=== PATIENT | female | born 1945 | race Caucasian/White ===

== ENCOUNTER 2017-05-15 09:38 | Emergency (ER) | payer MEDICARE, MEDICAID ==
[~2017-05-15] VITALS: Ht 152.4 cm; Wt 32.4 kg
[~2017-05-15 09:38] MED LIST: CALC500T47 PO; ESOM20SU PO; MEMA5TAB2 PO; MIRT15TA6 PO
--- OUTSIDE RECORDS SUMMARY | 2017-05-15 09:44 | XMS REPORT ---
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
--- OUTSIDE RECORDS SUMMARY | 2017-05-15 09:44 | XMS REPORT ---
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
--- OUTSIDE RECORDS SUMMARY | 2017-05-15 09:44 | XMS REPORT ---
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 496484770 Problem GERD (gastroesophageal reflux disease) K21.9 Active 950492375 Problem Screening, lipid Z13.220 Active 935529016 Problem Autism F84.0 Active 829911446 ALLERGIES Substance Reaction Event Type Date Status Aricept 5 Mg Tablet Unknown Non Drug Allergy Jan, Active SOCIAL HISTORY No smoking Hx information available PLAN OF CARE Activity Details Follow Up prn Reason: VITAL SIGNS Height 57 in 2016-02-07 Weight 78.5 lbs 2016-02-07 Temperature 98.4 degrees Fahrenheit 2016-02-07 BMI 16.99 kg/m2 2016-02-07 MEDICATIONS Medication Instructions Dosage Frequency Start Date End Date Duration Status Remeron 15 MG 1 tablet by Oral route 1 time per day 31 Active Mirtazapine Active Lorazepam Active Lorazepam 0.5 MG Orally 2 times a day 0.5 tablet as needed for agitation 12h 31 days Active Nexium 40 MG 1 capsule by Oral route 1 time per day 31 Active Namenda XR 7 MG TAKE ONE CAPSULE ORALLY DAILY 31 Active Terbinafine Active RESULTS Name Result Date Reference Range CULTURE, URINE 2016-02-07 Urine Culture, Routine Final report Result 1 UA W/CULTURE IF INDICATED (IN HOUSE) 2016-02-07 Lot # [id number] Exp date Clarity clear Color yellow Odor none GLU negative TIN negative KET trace SG >=1.030 BLO trace pH 5.5 Protein negative URO 0.2 NIT negative NIKKI trace Lot # Exp date PROCEDURES Procedure Date Ordered Related Diagnosis Body Site [facility] Feb 07, 2016 URINALYSIS, AUTO, W/O SCOPE Feb 07, 2016 Office Visit, Est Pt., Level 3 Feb 07, 2016 [facility] VISIT ESTABLISHED PATIENT Feb 07, 2016 IMMUNIZATIONS No Known Immunizations
--- OUTSIDE RECORDS SUMMARY | 2017-05-15 09:44 | XMS REPORT ---
Author Author DAVID SOSA Organization [facility] Address [address] [place] [address] Care Team Providers Care Catering Operations Manager Name Role Phone DAVID SOSA Unavailable PROBLEMS Type Condition ICD9-CM Code [id number] Code Onset Dates Condition Status SNOMED Code Problem Dyskinesia of esophagus K22.4 Active 19363023 Problem History of GI bleed Z87.19 Active 114977156 Problem Phenylketonuria E70.0 Active 2591368 Problem GERD (gastroesophageal reflux disease) K21.9 Active 745107789 Problem Agitation R45.1 Active 58779699 Problem Aggression F60.89 Active 64892798 Problem Autism F84.0 Active 040441906 Problem 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
--- OUTSIDE RECORDS SUMMARY | 2017-05-15 09:44 | XMS REPORT ---
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 Active Problem Severe mental retardation F72 Active Problem Phenylketonuria E70.0 Active Problem Aggression F60.89 Active Problem Screening, lipid Z13.220 Active Problem Agitation R45.1 Active Problem GERD (gastroesophageal reflux disease) K21.9 Active Problem History of GI bleed Z87.19 Active Problem Autism F84.0 Active Problem 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
--- OUTSIDE RECORDS SUMMARY | 2017-05-15 09:44 | XMS REPORT ---
Author Author DAVID SOSA Organization [employer] Address Unknown Phone Unavailable Care Team Providers Care Crisis Intervention Counselor Name Role Phone DAVID SOSA CP Unavailable [...] Start Date End Date Status Dosage Lorazepam [facility] [address]-21 0.5 MG TAKE 1/2 TABLET ORALLY TWICE A DAY FOR AGGRESSION Results No Known Results Summary Purpose eClinicalWorks Submission
--- OUTSIDE RECORDS SUMMARY | 2017-05-15 09:44 | XMS REPORT ---
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 Active 19625765 Problem History of GI bleed Z87.19 Active 857430388 Problem Phenylketonuria E70.0 Active 0152411 Problem GERD (gastroesophageal reflux disease) K21.9 Active 001222937 Problem Agitation R45.1 Active 75422200 Problem Aggression F60.89 Active 07991097 Problem Autism F84.0 Active 850720189 Problem 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
--- OUTSIDE RECORDS SUMMARY | 2017-05-15 09:44 | XMS REPORT ---
Author Author DAVID SOSA Organization [employer] Address Unknown Phone Unavailable Care Team Providers Care Water Resource Project Manager Name Role Phone DAVID SOSA CP Unavailable [...] Instructions Start Date End Date Status Dosage Calcium Carbonate [facility] [address] 600 mg (1,500 mg) July 21, 2013 1 tablet by Oral route 2 times per day Results No Known Results Summary Purpose eClinicalWorks Submission
--- OUTSIDE RECORDS SUMMARY | 2017-05-15 09:45 | XMS REPORT ---
Author Author DAVID SOSA Organization [facility] Address [address] [place] [address] Care Team Providers Care Supervisor Fleshing Name Role Phone DAVID SOSA Unavailable PROBLEMS Type Condition ICD9-CM Code [id number] Code Onset Dates Condition Status SNOMED Code Problem Dyskinesia of esophagus K22.4 Active 45036942 Problem History of GI bleed Z87.19 Active 105610771 Problem Phenylketonuria E70.0 Active 9189225 Problem GERD (gastroesophageal reflux disease) K21.9 Active 845693343 Problem Agitation R45.1 Active 46099574 Problem Aggression F60.89 Active 87799761 Problem Autism F84.0 Active 857271800 Problem 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 Active 569214284 Problem Screening, lipid Z13.220 Active 269900419 Problem Severe mental retardation F72 Active 43715529 ALLERGIES No Information SOCIAL HISTORY Never Assessed PLAN OF CARE VITAL SIGNS MEDICATIONS Medication Instructions Dosage Frequency Start Date End Date Duration Status Nexium 40 MG 1 capsule by Oral route 1 time per day 31 Active Terbinafine Active Remeron 15 MG 1 tablet by Oral route 1 time per day 31 Active Mirtazapine Active Namenda XR 7 MG TAKE ONE CAPSULE ORALLY DAILY 31 Active Ativan 0.5 MG Orally 2 times a day 0.5 tablet 12h May, 31 days Active Caltrate 600 1500 (600 Ca) MG Orally 2 times a day 1 tablet 12h Active RESULTS No Results PROCEDURES No Known procedures IMMUNIZATIONS No Known Immunizations MEDICAL (GENERAL) HISTORY Type Description Date Medical History alzheimer's disease
--- OUTSIDE RECORDS SUMMARY | 2017-05-15 09:45 | XMS REPORT ---
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
--- OUTSIDE RECORDS SUMMARY | 2017-05-15 09:45 | XMS REPORT ---
Author Author DAVID SOSA Organization [employer] Address Unknown Phone Unavailable Care Team Providers Care Soil Tester Name Role Phone DAVID SOSA CP Unavailable [...] Start Date End Date Status Dosage Ativan [facility] [address]-94 0.5 MG May 12, 2014 0.5 tablet by Oral route 2 times per day for agitation Results No Known Results Summary Purpose eClinicalWorks Submission
--- OUTSIDE RECORDS SUMMARY | 2017-05-15 09:45 | XMS REPORT ---
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 Active 55171678 Problem History of GI bleed Z87.19 Active 784344789 Problem Phenylketonuria E70.0 Active 5161659 Problem GERD (gastroesophageal reflux disease) K21.9 Active 081076357 Problem Agitation R45.1 Active 37071418 Problem Aggression F60.89 Active 89912123 Problem Autism F84.0 Active 807705586 Problem 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
--- OUTSIDE RECORDS SUMMARY | 2017-05-15 09:46 | XMS REPORT | Continuity of Care Document ---
Author Author [facility] Organization [facility] Address Unknown Phone Unavailable Allergies Active Description Code Type Severity Reaction Onset Reported/Identified Relationship to Patient Clinical Status Yes Aspartame (Nutrasweet) Food Allergy 12/07/2008 Yes Aspartame (Nutrasweet) Food Allergy N/A N/A 12/07/2008 Yes Aricept 5 mg tablet Drug Allergy N/A N/A 07/16/2012 Yes aspartame [id number] Drug Allergy Unknown N/A 03/08/2013 Medications There is no data. Problems Date Dx Coded Attending Type Code Diagnosis Diagnosed By 12/09/2007 533.90 PEPTIC ULCER OF UNSPECIFIED SITE UNSPECIFIED ACUTE OR CHRONIC WITHOUT HEMORRHAGE OR PERFORATION WITHOUT OBSTRUCTION 12/09/2007 533.90 PEPTIC ULCER OF UNSPECIFIED SITE UNSPECIFIED ACUTE OR CHRONIC WITHOUT HEMORRHAGE OR PERFORATION WITHOUT OBSTRUCTION 12/09/2007 533.90 PEPTIC ULCER OF UNSPECIFIED SITE UNSPECIFIED ACUTE OR CHRONIC WITHOUT HEMORRHAGE OR PERFORATION WITHOUT OBSTRUCTION 12/09/2007 DAVID SOSA APRN 533.90 PEPTIC ULCER OF UNSPECIFIED SITE UNSPECIFIED ACUTE OR CHRONIC WITHOUT HEMORRHAGE OR PERFORATION WITHOUT OBSTRUCTION 12/09/2007 DAVID SOSA APRN 533.90 PEPTIC ULCER OF UNSPECIFIED SITE UNSPECIFIED ACUTE OR CHRONIC WITHOUT HEMORRHAGE OR PERFORATION WITHOUT OBSTRUCTION 12/09/2007 DAVID SOSA APRN 533.90 PEPTIC ULCER OF UNSPECIFIED SITE UNSPECIFIED ACUTE OR CHRONIC WITHOUT HEMORRHAGE OR PERFORATION WITHOUT OBSTRUCTION 12/09/2007 HILLARY DAN DDS 533.90 PEPTIC ULCER OF UNSPECIFIED SITE UNSPECIFIED ACUTE OR CHRONIC WITHOUT HEMORRHAGE OR PERFORATION WITHOUT OBSTRUCTION 12/09/2007 DAVID SOSA APRN 533.90 PEPTIC ULCER OF UNSPECIFIED SITE UNSPECIFIED ACUTE OR CHRONIC WITHOUT HEMORRHAGE OR PERFORATION WITHOUT OBSTRUCTION 12/09/2007 RANDALL JACOBO APRN 533.90 PEPTIC ULCER OF UNSPECIFIED SITE UNSPECIFIED ACUTE OR CHRONIC WITHOUT HEMORRHAGE OR PERFORATION WITHOUT OBSTRUCTION 12/09/2007 MARIALUISA DOSS, KELY 533.90 PEPTIC ULCER OF UNSPECIFIED SITE UNSPECIFIED ACUTE OR CHRONIC WITHOUT HEMORRHAGE OR PERFORATION WITHOUT OBSTRUCTION 12/09/2007 EVA SOSA APRNNDA S 533.90 PEPTIC ULCER OF UNSPECIFIED SITE UNSPECIFIED ACUTE OR CHRONIC WITHOUT HEMORRHAGE OR PERFORATION WITHOUT OBSTRUCTION 12/13/2009 307.42 PERSISTENT DISORDER OF INITIATING OR MAINTAINING SLEEP 12/13/2009 318.2 PROFOUND MENTAL RETARDATION 12/13/2009 525.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 12/13/2009 530.81 ESOPHAGEAL REFLUX 12/13/2009 788.30 URINARY INCONTINENCE UNSPECIFIED 12/13/2009 307.42 PERSISTENT DISORDER OF INITIATING OR MAINTAINING SLEEP 12/13/2009 318.2 PROFOUND MENTAL RETARDATION 12/13/2009 525.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 12/13/2009 530.81 ESOPHAGEAL REFLUX 12/13/2009 788.30 URINARY INCONTINENCE UNSPECIFIED 12/13/2009 307.42 PERSISTENT DISORDER OF INITIATING OR MAINTAINING SLEEP 12/13/2009 318.2 PROFOUND MENTAL RETARDATION 12/13/2009 525.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 12/13/2009 530.81 ESOPHAGEAL REFLUX 12/13/2009 788.30 URINARY INCONTINENCE UNSPECIFIED 12/13/2009 SHEILA SHEET HEATEREVA JaraNDA S 307.42 PERSISTENT DISORDER OF INITIATING OR MAINTAINING SLEEP 12/13/2009 EVA SOSA APRNNDA S 318.2 PROFOUND MENTAL RETARDATION 12/13/2009 SHEILA PICKETT DAVID S 525.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 12/13/2009 SHEILA PICKETT DAVID S 530.81 ESOPHAGEAL REFLUX 12/13/2009 SHEILA PICKETT DAVID S 788.30 URINARY INCONTINENCE UNSPECIFIED 12/13/2009 SHEILA SHEET HEATER, DAVID S 307.42 PERSISTENT DISORDER OF INITIATING OR MAINTAINING SLEEP 12/13/2009 SHEILA PICKETT, DAVID S 318.2 PROFOUND MENTAL RETARDATION 12/13/2009 SHEILA PICKETT DAVID S 525.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 12/13/2009 SHEILA PICKETT, DAVID S 530.81 ESOPHAGEAL REFLUX 12/13/2009 SHEILA PICKETT DAVID S 788.30 URINARY INCONTINENCE UNSPECIFIED 12/13/2009 SHEILA SHEET HEATER, DAVID S 307.42 PERSISTENT DISORDER OF INITIATING OR MAINTAINING SLEEP 12/13/2009 SHEILA PICKETT, DAVID S 318.2 PROFOUND MENTAL RETARDATION 12/13/2009 SHEILA PICKETT, DAVID S 525.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 12/13/2009 SHEILA PICKETT, DAVID S 530.81 ESOPHAGEAL REFLUX 12/13/2009 SHEILA PICKETT, DAVID S 788.30 URINARY INCONTINENCE UNSPECIFIED 12/13/2009 WHITE DDS, HILLARY D 307.42 PERSISTENT DISORDER OF INITIATING OR MAINTAINING SLEEP 12/13/2009 WHITE DDS, HILLARY D 318.2 PROFOUND MENTAL RETARDATION 12/13/2009 WHITE DDS, HILLARY D 525.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 12/13/2009 WHITE DDS, HILLARY D 530.81 ESOPHAGEAL REFLUX 12/13/2009 WHITE DDS, HILLARY D 788.30 URINARY INCONTINENCE UNSPECIFIED 12/13/2009 EVA SOSA APRNNDA S 307.42 PERSISTENT DISORDER OF INITIATING OR MAINTAINING SLEEP 12/13/2009 SHEILA PICKETT, DAVID S 318.2 PROFOUND MENTAL RETARDATION 12/13/2009 SHEILA PICKETT, DAVID S 525.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 12/13/2009 SHEILA PICKETT DAVID S 530.81 ESOPHAGEAL REFLUX 12/13/2009 SHEILA PICKETT, DAVID S 788.30 URINARY INCONTINENCE UNSPECIFIED 12/13/2009 RANDALL JACOBO APRN T 307.42 PERSISTENT DISORDER OF INITIATING OR MAINTAINING SLEEP 12/13/2009 ODALIS PICKETT RANDALL T 318.2 PROFOUND MENTAL RETARDATION 12/13/2009 ODALIS PICKETT RANDALL T 525.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 12/13/2009 ODALIS PICKETT RANDALL T 530.81 ESOPHAGEAL REFLUX 12/13/2009 ODALIS PICKETT RANDALL T 788.30 URINARY INCONTINENCE UNSPECIFIED 12/13/2009 KELY ELAM MD 307.42 PERSISTENT DISORDER OF INITIATING OR MAINTAINING SLEEP 12/13/2009 KELY ELAM MD 318.2 PROFOUND MENTAL RETARDATION 12/13/2009 KELY ELAM MD 525.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 12/13/2009 KELY ELAM MD 530.81 ESOPHAGEAL REFLUX 12/13/2009 KELY ELAM MD 788.30 URINARY INCONTINENCE UNSPECIFIED 12/13/2009 DAVID SOSA APRN S 307.42 PERSISTENT DISORDER OF INITIATING OR MAINTAINING SLEEP 12/13/2009 DAVID SOSA APRN 318.2 PROFOUND MENTAL RETARDATION 12/13/2009 DAVID SOSA APRN S 525.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 12/13/2009 DAVID SOSA APRN S 530.81 ESOPHAGEAL REFLUX 12/13/2009 DAVID SOSA APRN 788.30 URINARY INCONTINENCE UNSPECIFIED 01/29/2011 300.00 ANXIETY STATE UNSPECIFIED 01/29/2011 V70.0 EXAM - ROUTINE H&P 01/29/2011 300.00 ANXIETY STATE UNSPECIFIED 01/29/2011 V70.0 EXAM - ROUTINE H&P 01/29/2011 300.00 ANXIETY STATE UNSPECIFIED 01/29/2011 V70.0 EXAM - ROUTINE H&P 01/29/2011 JUAN R SOSA APRNA S 300.00 ANXIETY STATE UNSPECIFIED 01/29/2011 JUAN R SOSA APRNA S V70.0 EXAM - ROUTINE H&P 01/29/2011 EVA SOSA APRNNDA S 300.00 ANXIETY STATE UNSPECIFIED 01/29/2011 EVA SOSA APRNNDA S V70.0 EXAM - ROUTINE H&P 01/29/2011 EVA SOSA APRNNDA S 300.00 ANXIETY STATE UNSPECIFIED 01/29/2011 JUAN R SOSA APRNA S V70.0 EXAM - ROUTINE H&P 01/29/2011 WHITE DDS, HILLARY D 300.00 ANXIETY STATE UNSPECIFIED 01/29/2011 WHITE DDS, HILLARY D V70.0 EXAM - ROUTINE H&P 01/29/2011 JUAN R SOSA APRNA S 300.00 ANXIETY STATE UNSPECIFIED 01/29/2011 EVA SOSA APRNNDA S V70.0 EXAM - ROUTINE H&P 01/29/2011 RANDALL JACOBO APRN T 300.00 ANXIETY STATE UNSPECIFIED 01/29/2011 ODALIS PICKETT RANDALL T V70.0 EXAM - ROUTINE H&P 01/29/2011 KELY ELAM MD 300.00 ANXIETY STATE UNSPECIFIED 01/29/2011 KELY ELAM MD V70.0 EXAM - ROUTINE H&P 01/29/2011 DAVID SOSA APRN S 300.00 ANXIETY STATE UNSPECIFIED 01/29/2011 EVA SOSA APRNNDA S V70.0 EXAM - ROUTINE H&P 03/21/2011 V72.31 Pelvic Exam ( Internal) 03/21/2011 V72.31 Pelvic Exam ( Internal) 03/21/2011 V72.31 Pelvic Exam ( Internal) 03/21/2011 EVA SOSA APRNNDA S V72.31 Pelvic Exam (Internal) 03/21/2011 EVA SOSA APRNNDA S V72.31 Pelvic Exam (Internal) 03/21/2011 EVA SOSA APRNNDA S V72.31 Pelvic Exam (Internal) 03/21/2011 HILLARY DAN DDS V72.31 Pelvic Exam (Internal) 03/21/2011 JUAN R SOSA APRNA S V72.31 Pelvic Exam (Internal) 03/21/2011 RANDALL JACOBO APRN V72.31 Pelvic Exam (Internal) 03/21/2011 KELY ELAM MD V72.31 Pelvic Exam (Internal) 03/21/2011 JUAN R SOSA APRNA S V72.31 PELVIC EXAM (INTERNAL) 05/15/2012 294.20 DEMENTIA UNSPECIFIED WITHOUT BEHAVIORAL DISTURBANCE 05/15/2012 294.20 DEMENTIA UNSPECIFIED WITHOUT BEHAVIORAL DISTURBANCE 05/15/2012 EVA SOSA APRNNDA S 294.20 DEMENTIA UNSPECIFIED WITHOUT BEHAVIORAL DISTURBANCE 05/15/2012 EVA SOSA APRNNDA S 294.20 DEMENTIA UNSPECIFIED WITHOUT BEHAVIORAL DISTURBANCE 05/15/2012 EVA SOSA APRNNDA S 294.20 DEMENTIA UNSPECIFIED WITHOUT BEHAVIORAL DISTURBANCE 05/15/2012 HILLARY DAN DDS 294.20 DEMENTIA UNSPECIFIED WITHOUT BEHAVIORAL DISTURBANCE 05/15/2012 EVA SOSA APRNNDA S 294.20 DEMENTIA UNSPECIFIED WITHOUT BEHAVIORAL DISTURBANCE 05/15/2012 RANDALL JACOBO APRN 294.20 DEMENTIA UNSPECIFIED WITHOUT BEHAVIORAL DISTURBANCE 05/15/2012 KELY ELAM MD 294.20 DEMENTIA UNSPECIFIED WITHOUT BEHAVIORAL DISTURBANCE 05/15/2012 EVA SOSA APRNNDA S 294.20 DEMENTIA UNSPECIFIED WITHOUT BEHAVIORAL DISTURBANCE 02/05/2013 SHEILA SHEET HEATER, DAVID S 530.5 DYSPHAGIA 02/05/2013 SHEILA SHEET HEATER, DAVID S V82.9 SCREENING FOR UNSPECIFIED CONDITION 02/05/2013 SHEILA SHEET HEATER, DAVID S 530.5 DYSPHAGIA 02/05/2013 SHEILA SHEET HEATER, DAVID S V82.9 SCREENING FOR UNSPECIFIED CONDITION 02/05/2013 WHITE DDS, HILLARY D 530.5 DYSPHAGIA 02/05/2013 WHITE DDS, HILLARY D V82.9 SCREENING FOR UNSPECIFIED CONDITION 02/05/2013 SHEILA PICKETT, DAVID S 530.5 DYSPHAGIA 02/05/2013 SHEILA HASSANN, DAVID S V82.9 SCREENING FOR UNSPECIFIED CONDITION 02/05/2013 RANDALL JACOBO APRN 530.5 DYSPHAGIA 02/05/2013 RANDALL JACOBO APRN V82.9 SCREENING FOR UNSPECIFIED CONDITION 02/05/2013 KEYL ELAM MD 530.5 DYSPHAGIA 02/05/2013 KELY ELAM MD V82.9 SCREENING FOR UNSPECIFIED CONDITION 02/05/2013 SHEILA PICKETT, DAVID S 530.5 DYSPHAGIA 02/05/2013 SHEILA PICKETT, DAVID S V82.9 SCREENING FOR UNSPECIFIED CONDITION 02/20/2013 DAVID SOSA Ot 787.20 DYSPHAGIA, UNSPECIFIED 02/20/2013 DAVID SOSA Ot V57.3 CARE INVOLVING SPEECH-LANGUAGE THERAPY 03/08/2013 TRACEE COOK MD Ot 692.9 DERMATITIS NOS 03/08/2013 TRACEE COOK MD Ot 782.1 NONSPECIF SKIN ERUPT NEC 04/24/2013 RANDALL JACOBO APRN 110.1 ONYCHOMYCOSIS 04/24/2013 KELY ELAM MD 110.1 ONYCHOMYCOSIS 04/24/2013 DAVID SOSA APRN 110.1 ONYCHOMYCOSIS 09/29/2013 KELY ELAM MD V76.12 MAMMOGRAM SCREENING 09/29/2013 DAVID SOSA APRN V76.12 MAMMOGRAM SCREENING 08/31/2015 Ot V76.19 OTH SCREEN BREAST EXAM FOR MALIGNANT ANY 08/31/2015 DAVID SOSA Ot 733.00 OSTEOPOROSIS NOS 08/31/2015 EVA SOSANDA VIVIEN Ot V82.81 SCREENING FOR OSTEOPOROSIS 08/31/2015 SHEILA DAVID PUGA Ot Z12.31 ENCNTR SCREEN MAMMOGRAM FOR MALIGNANT NE 08/31/2015 EVA SOSALUIS PUGA Ot Z12.31 ENCNTR SCREEN MAMMOGRAM FOR MALIGNANT NE 09/01/2015 SHEILA DAVID PUGA Ot Z12.31 ENCNTR SCREEN MAMMOGRAM FOR MALIGNANT NE 09/02/2015 SHEILA, DAVID PUGA Ot Z12.31 ENCNTR SCREEN MAMMOGRAM FOR MALIGNANT NE 10/06/2015 SHEILAEVA GAMINOLUIS PUGA Ot Z12.31 ENCNTR SCREEN MAMMOGRAM FOR MALIGNANT NE 11/08/2015 EVA SOSALUIS PUGA Ot Z12.31 ENCNTR SCREEN MAMMOGRAM FOR MALIGNANT NE Procedures Code [place] [address] CBC 02/06/2013 2322723 GFR CALC (RESULT ONLY) 02/06/2013 78249 CMP 02/06/2013 75322 LIPID PANEL 02/06/2013 17060 TSH 02/06/2013 54438 US HEEL, BONE MINERAL DENSITY (IN HOUSE) 02/10/2013 14910 DEXA BONE DENSITY, AXIAL 02/13/2013 Physical Speech Therapy 02/24/2013 71907 US BREAST(S) ULTRASOUND, BOTH 10/01/2013 Results Test Result Range Urine Culture, Routine - 02/07/16 15:23 Urine Culture, Routine Note Encounters ACCT No. Visit Date/Time Discharge Status Pt. Type Provider Facility Loc./Unit Complaint [id number] 08/31/2015 10:28:00 08/31/2015 23:59:59 CLS Outpatient DAVID SOSA [facility] RAD SCREENING [id number] 03/08/2013 08:44:00 03/08/2013 10:20:00 DIS Emergency TRACEE COOK MD [facility] ER [id number] 02/27/2013 10:31:00 02/27/2013 23:59:59 CLS Outpatient DAVID SOSA [facility] RAD [id number] 02/20/2013 13:04:00 02/20/2013 14:00:00 [id number] 08/31/2015 10:28:00 Document Registration [id number] 03/28/2011 13:02:00 Document Registration [id number] 04/19/2014 09:52:00 04/19/2014 23:59:59 CLS Outpatient DAVID SOSA APRN [id number] 09/30/2013 14:41:00 09/30/2013 23:59:59 CLS Outpatient KELY ELAM MD [id number] 04/24/2013 11:49:00 04/24/2013 23:59:59 CLS Outpatient RANDALL JACOBO APRN [id number] 02/13/2013 08:06:00 02/13/2013 23:59:59 CLS Outpatient HILLARY DAN DDS [id number] 02/10/2013 09:21:00 02/10/2013 23:59:59 CLS Outpatient DAVID SOSA APRN [id number] 02/05/2013 11:05:00 02/05/2013 23:59:59 CLS Outpatient DAVID SOSA APRN [id number] 02/05/2013 11:05:00 02/05/2013 23:59:59 CLS Outpatient DAVID SOSA APRN [id number] 08/19/2012 13:47:00 08/19/2012 23:59:59 CLS Outpatient DAVID SOSA APRN [id number] 05/15/2012 11:47:00 05/15/2012 23:59:59 CLS Outpatient [id number] 12/19/2011 14:24:00 12/19/2011 23:59:59 CLS Outpatient [id number] 07/16/2012 15:01:00 Document Registration [id number] 02/09/2016 05:05:00 Document Registration
--- OUTSIDE RECORDS SUMMARY | 2017-05-15 09:46 | XMS REPORT ---
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 Active 93823326 Problem History of GI bleed Z87.19 Active 058924664 Problem Phenylketonuria E70.0 Active 3863986 Problem GERD (gastroesophageal reflux disease) K21.9 Active 340911516 Problem Agitation R45.1 Active 28664636 Problem Aggression F60.89 Active 69698822 Problem Autism F84.0 Active 145122279 Problem 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 Active 319906118 Problem Screening, lipid Z13.220 Active 990602922 Problem Severe mental retardation F72 Active 69528565 ALLERGIES Substance Reaction Event Type Date Status Aricept 5 Mg Tablet Unknown Non Drug Allergy Apr, Active SOCIAL HISTORY Never Assessed PLAN OF CARE Activity Details Follow Up 6 Months Reason: VITAL SIGNS Height 57 in 2016-05-17 Weight 75.3 lbs 2016-05-17 Heart Rate 98 bpm 2016-05-17 Respiratory Rate 20 2016-05-17 BMI 16.29 kg/m2 2016-05-17 Blood pressure systolic 186 mmHg 2016-05-17 Blood pressure diastolic 92 mmHg 2016-05-17 MEDICATIONS Medication Instructions Dosage Frequency Start Date End Date Duration Status Caltrate 600 1500 (600 Ca) MG Orally 2 times a day 1 tablet 12h Active Ativan 0.5 MG Orally 2 times a day 0.5 tablet 12h May, 31 days Active Namenda XR 7 MG TAKE ONE CAPSULE ORALLY DAILY 31 Active Remeron 15 MG 1 tablet by Oral route 1 time per day 31 Active Terbinafine Active Ammonium Lactate 12 % Externally Once a day 1 application to affected area 24h Active Nexium 40 MG 1 capsule by Oral route 1 time per day 31 Active RESULTS No Results PROCEDURES Procedure Date Ordered Result Body Site [facility] VISIT IPPE/AWV May 17, 2016 ANNUAL WELLNESS VST; PPS SUBSQT VST May 17, 2016 IMMUNIZATIONS No Known Immunizations MEDICAL (GENERAL) HISTORY Type Description Date Medical History alzheimer's disease
--- OUTSIDE RECORDS SUMMARY | 2017-05-15 09:46 | XMS REPORT ---
Author Author DAVID SOSA Organization [facility] Address [address] [place] [address] Care Team Providers Care Automobile Spring Repairer Name Role Phone DAVID SOSA Unavailable PROBLEMS Type Condition ICD9-CM Code MDN75-EI Code Onset Dates Condition Status SNOMED Code Problem Dyskinesia of esophagus K22.4 Active 09327291 Problem History of GI bleed Z87.19 Active 090651745 Problem Phenylketonuria E70.0 Active 2174788 Problem GERD (gastroesophageal reflux disease) K21.9 Active 619813757 Problem Agitation R45.1 Active 81116775 Problem Aggression F60.89 Active 73208750 Problem Autism F84.0 Active 542420901 Problem 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 Active 319877203 Problem Screening, lipid Z13.220 Active 394593426 Problem Severe mental retardation F72 Active 73043871 ALLERGIES No Information ENCOUNTERS Encounter Location Date Diagnosis [place] [address] [address] Apr, Agitation R45.1 [place] [address] [address] Apr, Candidiasis, intertriginous B37.2 [place] [address] [address]- [address] Mar, Phenylketonuria E70.0 and Weight loss R63.4 [place] [address] [address]- [address] Mar, [place] [address] [address] Mar, Rash R21 [place] [address] [address]- [address] 09 Mar, 2017 Rash R21 [facility] [id number] [place] [address]- 6746 Feb, Encounter for screening for other metabolic disorders Z13.228 [facility] [address] [place] [address] 96341- 5469 Feb, Autism F84.0 and Agitation R45.1 [facility] [address] [place] [id number] [place] [address] 73562- 3425 Oct, [facility] [id number] [place] [address] 83313- 1615 Oct, Weight loss R63.4 ; Severe mental retardation F72 and Autism F84.0 [facility] [id number] [place] [id number] Sep, [facility] [address] [place] [id number] [place] [address] 93341- 1041 Sep, Agitation R45.1 [facility] [address] [place] [address] 77911- 9162 Sep, Agitation R45.[address] [id number] [id number] Jul, Dental examination Z01.20 [facility] [address] [address] Jul, [facility] [address] [place] [address] 39910- 1272 June, [facility] [address] [place] [address] 41561- 1146 Apr, History of GI bleed Z87.19 and Screening, lipid Z13.220 [facility] [address] [place] [address] 62266- 8040 Apr, Severe mental retardation F72 ; Screening, lipid Z13.220 and History of GI bleed Z87.19 [facility] [address] [address] 28 Mar, 2016 Agitation R45.1 [facility] [address] [place] [id number] [place] [address] 66329- 2883 27 Mar, 2016 [facility] [address] [place] [id number] [place] [address]229- 9996 Jan, Malaise R53.81 [facility] [address] [place] [id number] [place] [address] 15293- 1301 Nov, [facility] [address] [place] [id number] [place] [address] 28979- 1747 Jul, Breast cancer screening Z12.39 [place] [address] [place] [id number] [place] [address] 54845- 6749 Jul, [facility] [address] [place] [id number] [place] [address] [id number] May, Encounter for dental examination and cleaning with abnormal findings Z01.21 [facility] [address] [place] [id number] [place] [address] 86575- 8078 May, Agitation R45.1 [place] [id number] [place] [address] 17138- 2749 May, Agitation R45.1 [place] [address] [place] [id number] [place] [address] 86340- 0056 May, Autism F84.0 ; History of GI bleed Z87.19 and Screening, lipid Z13.220 [facility] [address] [place] [address] 75264- 7952 Apr, Autism F84.0 ; 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 [id number] [place] [address]- 8042 Dec, [facility] [place] [facility] [address] [id number] [place] [address]- 5519 Dec, [facility] [place] [facility] [address] [id number] [place] [address]- 9332 29 Oct, 2014 [facility] [place] [facility] [id number] [place] [address], [place] [address]- 2445 23 Oct, 2014 [facility] [place] [facility] [address] [id number] [place] [address]- 6395 16 Oct, 2014 [facility] [place] [facility] [address] [id number] [place] [address]- 5522 Aug, [facility] [place] [facility] [address] [id number] [place] [address]- 0765 Jul, Anorexia 783.0 [facility] [place] [facility] [address] [id number] [place] [address]- 8471 June, [facility] [place] [facility] [address] [id number] [place] [address]- 7664 14 May, 2014 [facility] [place] [facility] [address] [id number] [place] [address]- 7870 13 May, 2014 [facility] [place] [facility] [address] [id number] [place] [address]- 6248 18 Apr, 2014 [facility] [place] [facility] [address] [id number] [place] [address]- 5445 18 Apr, 2014 [facility] [place] [facility] [address] [facility] [id number] [place] [address]- 5158 17 Apr, 2014 [facility] [place] [facility] [address] [id number] [place] [address]- 9759 Apr, 2014 [facility] [place] [facility] [address] [id number] [place] [address]- 6842 Apr, 2014 [facility] [place] [facility] [address] [id number] [place] [address]- 2770 Apr, 2014 [facility] [place] [facility] [address] [id number] [place] [address]- 9523 Mar, 2014 [facility] [place] [facility] [address] [id number] [place] [address]- 2824 Mar, 2014 [facility] [place] [facility] [address] [id number] [place] [address]- 0991 Mar, 2014 [facility] [place] [facility] [address] [id number] [place] [address]- 7512 Mar, 2014 [facility] [place] [facility] [address] [id number] [place] [address]- 2136 Mar, 2014 [facility] [place] [facility] [address] [id number] [place] [address]- 7499 Mar, 2014 [facility] [place] [facility] [address] [id number] [place] [address]- 5560 Sep, [facility] [place] [facility] [address] [id number] [place] [address]- 6273 Sep, [facility] [place] [facility] [address] [id number] [place] [address]- 1569 Sep, [facility] [place] [facility] [address] [id number] [place] [address]- 8645 Sep, [facility] [place] [facility] [address] [id number] [place] [address]- 1244 Aug, [facility] [place] [facility] [address] [id number] [place] [address]- 7512 Aug, [facility] [place] [facility] [address] [id number] [place] [address]- 2546 June, [facility] [place] [facility] [address] [id number] [place] [address]- 7661 June, [facility] [place] [facility] [address] [id number] [place] [address]- 6116 Apr, [facility] [place] [facility] [address] [id number] [place] [address]- 3929 Apr, [facility] [place] [facility] [address] [id number] [place] [address]- 6974 Mar, [facility] [place] [facility] [address] [id number] [place] [address]- 8581 Mar, [facility] [place] [facility] [address] [id number] [place] [address]- 2645 Mar, [facility] [place] [facility] [address] [id number] [place] [address]- 9999 Mar, [facility] [place] [facility] [address] [id number] [place] [address]- 6089 Feb, [facility] [place] [facility] [address] [id number] [place] [address]- 5974 Feb, [facility] [place] [facility] [address] [facility] [id number] [place] [address]- 8233 Feb, [facility] [place] [facility] [address] [id number] [place] [address]- 4027 Feb, [facility] [place] [facility] [address] [id number] [place] [address]- 1602 Feb, [facility] [place] [facility] [address] [id number] [place] [address]- 8195 Feb, [facility] [place] [facility] [address] [id number] [place] [address]- 2076 Jan, [facility] [place] [facility] [address] [id number] [place] [address]- 2456 Jan, [facility] [place] [facility] [address] [id number] [place] [address]- 4347 17 Jan, 2013 [facility] [place] [facility] [address] [id number] [place] [address]- 6265 17 Jan, 2013 [facility] [place] [facility] [address] [id number] [place] [address]- 0060 16 Jan, 2013 [facility] [place] [facility] [address] [id number] [place] [address]- 3656 16 Jan, 2013 [facility] [place] [facility] [address] [id number] [place] [address]- 8711 13 Jan, 2013 [facility] [place] [facility] [address] [id number] [place] [address]- 1265 Jan, [facility] [place] [facility] [address] [id number] [place] 3129 Jan, [facility] [place] [facility] [address] [id number] [place] [address]- 4666 Dec, [facility] [place] [facility] [address] [id number] [place] 2259 Dec, [facility] [place] [facility] [address] [id number] [place] [address]- 8551 Nov, [facility] [place] [facility] [address] [id number] [place] [address]- 4291 Nov, [facility] [place] [facility] [address] [id number] [place] [address]- 1365 Jul, [facility] [place] [facility] [address] [id number] [place] [address]- 2799 Jul, [facility] [place] [facility] [address] [id number] [place] [address]- 3554 June, [facility] [place] [facility] [address] [id number] [place] [address]- 2976 May, [facility] [place] [facility] [address] [id number] [place] [address]- 2565 Apr, [facility] [place] [facility] [address] [id number] [place] [address]- 9498 Dec, [facility] [place] [facility] [address] [id number] [place] [address]- 3876 Dec, [facility] [place] [facility] [address] [facility] [id number] [place] [address]- 6557 Nov, [facility] [place] [facility] [address] [id number] [place] [address]- 6907 Nov, [facility] [place] [facility] [address] [id number] [place] [address]- 5391 Nov, [facility] [place] [facility] [address] [id number] [place] [address]- 8362 Nov, [facility] [place] [facility] [address] [facility] [id number] [place] [address]- 1848 Jul, [facility] [place] [facility] [address] [id number] [place] [address]- 2771 Jul, [facility] [place] [facility] [address] [id number] [place] [address]- 8329 Jul, [facility] [place] [facility] [address] [facility] [id number] [place] [address]- 2100 June, [facility] [place] [facility] [address] [id number], [place] [address]- 9121 Mar, [facility] [place] [facility] [address] [id number], [place] [address]- 8001 Feb, [facility] [place] [facility] [address] [id number] [place] [address]- 2922 Feb, [facility] [place] [facility] [address] [facility] [id number], [place] [address]- 0025 Feb, [facility] [place] [facility] [address] [facility] [id number], [place] [address]- 5704 Jan, [facility] [place] [facility] [address] [id number] [address]- 2546 Dec, [facility] [address] [address] 2546 Jan, [facility] [address] [address] 2546 Nov, [facility] [address] [address]- 2546 Nov, [facility] [address] [address]- 2546 Nov, [facility] [address] [address] 2546 Jan, [facility] [address] [address]- 2546 Nov, [facility] [address] [address] 2546 Nov, [facility] [address] [place] [id number] [address] 2546 Nov, IMMUNIZATIONS No Known Immunizations SOCIAL HISTORY Never Assessed REASON FOR VISIT Refill request PLAN OF CARE VITAL SIGNS MEDICATIONS Medication Instructions Dosage Frequency Start Date End Date Duration Status Calcium Carbonate 600 MG Orally 2 times a day 1 tablet 12h Jul, 31 days Active RESULTS No Results PROCEDURES No Known procedures INSTRUCTIONS MEDICATIONS ADMINISTERED No Known Medications MEDICAL (GENERAL) HISTORY Type Description Date Medical History alzheimer's disease
--- OUTSIDE RECORDS SUMMARY | 2017-05-15 09:46 | XMS REPORT ---
Author Author DAVID SOSA Organization [employer] Address Unknown Phone Unavailable Care Team Providers Care Cricket Coach Name Role Phone DAVID SOSA CP Unavailable [...] Start Date End Date Status Dosage Lorazepam [facility] [id number] 0.5 MG TAKE 1/2 TABLET ORALLY TWICE A DAY FOR AGGRESSION Results No Known Results Summary Purpose [employer] Submission
--- NOTE | 2017-05-15 10:59 | ED General ---
General Chief Complaint: General Problems/Pain Stated Complaint: REFUSING TO EAT,FLUID INTAKE LOW,LETHARGIC Nursing Triage Note: pt brought to ed in [facility] by [facility]. caregiver states pt has not been eating or drinking since 05/14/17. pt was very lethargic yesterday. Nursing Sepsis Screen: No Definite Risk Source of Information: Patient Exam Limitations: No Limitations History of Present Illness Date Seen by Provider: May 15, 2017 Time Seen by Provider: 10:58 Initial Comments This is a 71-year-old female severely mentally retarded from [facility] home with reports of not eating or drinking since yesterday afternoon. Very lethargic yesterday evening. Timing/Duration: 1-2 Days Severity: Moderate Allergies and Home Medications Allergies Coded Allergies: aspartame (Verified Allergy, 03/08/13) Home Medications Calcium Carbonate 200 Mg Tab.chew, 600 MG PO BID, (Reported) Esomeprazole Mag Trihydrate 20 Mg Suspdr.pkt, 20 MG PO DAILY, (Reported) Memantine Hcl 5 Mg Tablet, 1 EACH PO BID, (Reported) Mirtazapine 15 Mg Tablet, 1 EACH PO HS, (Reported) Sulfamethoxazole/Trimethoprim 1 Each Tablet, 1 EACH PO BID Prescribed by: FITO BOOTH on 05/15/17 1202 Patient Home Medication List Home Medication List Reviewed: Yes Constitutional: see HPI EENTM: see HPI Respiratory: no symptoms reported Cardiovascular: no symptoms reported Genitourinary: no symptoms reported Musculoskeletal: no symptoms reported Skin: no symptoms reported Psychiatric/Neurological: No Symptoms Reported Past Gawhyjb-Vnnrpa-Hameth Hx Patient Social History Alcohol Use: Denies Use Recreational Drug Use: No Smoking Status: Never a Smoker 2nd Hand Smoke Exposure: No Recent Foreign Travel: No Contact w/Someone Who Travel: No Recent Infectious Disease Expo: No Physical Abuse: No Sexual Abuse: No Gastrointestinal Gastrointestinal Disorders: Gastroesophageal Reflux, Gastrointestinal Bleed Psychosocial Suicide Risk Score: 0 Integumentary Skin/Integumentary Disorders: Recent Skin Changes Physical Exam Vital Signs Vital Signs - First Documented 05/15/17 09:45 Pulse 124 Resp 20 B/P (MAP) 117/105 (109) Pulse Ox 96 O2 Delivery Room Air Capillary Refill : Less Than 3 Seconds General Appearance: No Apparent Distress, WD/WN, Thin Eyes: Bilateral Eye Normal Inspection, Bilateral Eye PERRL, Bilateral Eye EOMI HEENT: PERRL/EOMI, TMs Normal Neck: Full Range of Motion, Normal Inspection Respiratory: Normal Breath Sounds, No Accessory Muscle Use Cardiovascular: Normal Peripheral Pulses, Tachycardia Gastrointestinal: Normal Bowel Sounds, Non Tender, Soft Extremity: Normal Capillary Refill, Normal Inspection Neurologic/Psychiatric: Alert, Oriented x3, No Motor/Sensory Deficits Skin: Normal Color, Warm/Dry Progress/Results/Core Measures Suspected Sepsis Recent Fever Within 48 Hours: No Infection Criteria Present: None New/Unexplained Altered Menta: No Sepsis Screen: No Definite Risk Sepsis Diagnosis: SIRS Temperature: Pulse: 124 Respiratory Rate: 20 Laboratory Tests 05/15/17 10:56: White Blood Count 11.8H Blood Pressure 117 /105 Mean: 109 Laboratory Tests 05/15/17 10:56: Creatinine 0.49L, Platelet Count 171, Total Bilirubin 1.5H Results/Orders Lab Results Laboratory Tests Test 05/15/17 10:56 05/15/17 11:38 Range/Units White Blood Count 11.8 H 4.3-11.0 10^3/uL Red Blood Count 4.02 L 4.35-5.85 10^6/uL Hemoglobin 12.8 11.5-16.0 G/DL Hematocrit 40 35-52 % Mean Corpuscular Volume 100 H 80-99 FL Mean Corpuscular Hemoglobin 32 25-34 PG Mean Corpuscular Hemoglobin Concent 32 32-36 G/DL Red Cell Distribution Width 13.6 10.0-14.5 % Platelet Count 171 130-400 10^3/uL Mean Platelet Volume 10.3 7.4-10.4 FL Neutrophils (%) (Auto) 91 H 42-75 % Lymphocytes (%) (Auto) 5 L 12-44 % Monocytes (%) (Auto) 4 0-12 % Eosinophils (%) (Auto) 0 0-10 % Basophils (%) (Auto) 0 0-10 % Neutrophils # (Auto) 10.7 H 1.8-7.8 X 10^3 Lymphocytes # (Auto) 0.6 L 1.0-4.0 X 10^3 Monocytes # (Auto) 0.5 0.0-1.0 X 10^3 Eosinophils # (Auto) 0.0 0.0-0.3 10^3/uL Basophils # (Auto) 0.0 0.0-0.1 10^3/uL Neutrophils % (Manual) 86 % Lymphocytes % (Manual) 10 % Monocytes % (Manual) 4 % Reactive Lymphocytes 1 % Blood Morphology Comment NORMAL Sodium Level 141 135-145 MMOL/L Potassium Level 4.2 3.6-5.0 MMOL/L Chloride Level 100 98-107 MMOL/L Carbon Dioxide Level 35 H 21-32 MMOL/L Anion Gap 6 5-14 MMOL/L Blood Urea Nitrogen 10 7-18 MG/DL Creatinine 0.49 L 0.60-1.30 MG/DL Estimat Glomerular Filtration Rate > 60 BUN/Creatinine Ratio 20 Glucose Level 114 H 70-105 MG/DL Calcium Level 10.8 H 8.5-10.1 MG/DL Total Bilirubin 1.5 H 0.1-1.0 MG/DL Aspartate Amino Transf (AST/SGOT) 21 5-34 U/L Alanine Aminotransferase (ALT/SGPT) 12 0-55 U/L Alkaline Phosphatase 89 40-136 U/L Total Protein 7.0 6.4-8.2 GM/DL Albumin 4.0 3.2-4.5 GM/DL Urine Color YELLOW Urine Clarity SLIGHTLY CLOUDY Urine pH 7 5-9 Urine Specific [place] 1.015 L 1.016-1.022 Urine Protein 1+ H NEGATIVE Urine Glucose (UA) NEGATIVE NEGATIVE Urine Ketones 1+ H NEGATIVE Urine Nitrite NEGATIVE NEGATIVE Urine Bilirubin NEGATIVE NEGATIVE Urine Urobilinogen NORMAL NORMAL MG/DL Urine Leukocyte Esterase 3+ H NEGATIVE Urine RBC (Auto) 2+ H NEGATIVE Urine RBC NONE /HPF Urine WBC >100 H /HPF Urine Squamous Epithelial Cells 10-25 H /HPF Urine Crystals NONE /LPF Urine Amorphous Sediment LARGE SYD URATES H /LPF Urine Bacteria FEW H /HPF Urine Casts NONE /LPF Urine Mucus NEGATIVE /LPF Urine Culture Indicated YES My Orders Orders - FITO BOOTH APRN Lactated Ringers (Lr 1000 Ml Iv Solution (05/15/17 11:00) Chest 1 View, Ap/Pa Only (05/15/17 10:55) Blood Culture (05/15/17 10:56) Lactic Acid Analyzer (05/15/17 10:56) General/Regular (05/15/17 Lunch) Ceftriaxone Injection (Rocephin Injectio (05/15/17 12:15) Vital Signs/I&O Vital Sign - Last 12Hours 05/15/17 09:45 Pulse 124 Resp 20 B/P (MAP) 117/105 (109) Pulse Ox 96 O2 Delivery Room Air Capillary Refill : Less Than 3 Seconds Blood Pressure Mean: 109 Departure Impression Impression: Primary Impression: Urinary tract infection Disposition: HOME, SELF-CARE Condition: Stable Departure-Patient Inst. Decision time for Depature: 12:01 Referrals: JOSE CARLOS BURDEN DO (PCP) Primary Care Physician DAVID SOSA (Family) Primary Care Physician Patient Instructions: Urinary Tract Infection, Adult (DC) Add. Discharge Instructions: 1. Follow up with primary care later this week 2. Return to ER for feveres or any other concerns 3. All discharge instructions reviewed with patient and/or family. Voiced understanding. Scripts Sulfamethoxazole/Trimethoprim (Bactrim Ds Tablet) 1 Each Tablet 1 EACH PO BID, #14 TAB Prov: FITO BOOTH APRN 05/15/17 Copy Copies To 1: JOSE CARLOS BURDEN PETER J APRN May 15, 2017 10:59
[2017-05-15] MEDS ORDERED: LACTATED RINGERS 1,000 ML IV SCH (11:00)
[2017-05-15 11:14] LABS: BASOPHILS % (AUTO) 0 % (0-10); EOSINOPHILS % (AUTO) 0 % (0-10); HEMATOCRIT 40 % (35-52); HEMOGLOBIN 12.8 G/DL (11.5-16.0); LYMPHOCYTES # (AUTO) 0.6 X 10^3 (1.0-4.0); LYMPHOCYTES % (AUTO) 5 % (12-44); MEAN CORPUSCULAR HEMOGLOBIN 32 PG (25-34); MEAN CORPUSCULAR HGB CONC 32 G/DL (32-36); MEAN CORPUSCULAR VOLUME 100 FL (80-99); MEAN PLATELET VOLUME 10.3 FL (7.4-10.4); MONOCYTES # (AUTO) 0.5 X 10^3 (0.0-1.0); MONOCYTES % (AUTO) 4 % (0-12); NEUTROPHILS # (AUTO) 10.7 X 10^3 (1.8-7.8); NEUTROPHILS % (AUTO) 91 % (42-75); PLATELET COUNT 171 10^3/uL (130-400); RED BLOOD COUNT 4.02 10^6/uL (4.35-5.85); RED CELL DISTRIBUTION WIDTH 13.6 % (10.0-14.5); WHITE BLOOD COUNT 11.8 10^3/uL (4.3-11.0)
[2017-05-15 11:36] LABS: ALANINE AMINOTRANSFERASE 12 U/L (0-55); ALKALINE PHOSPHATASE 89 U/L (40-136); BILIRUBIN,TOTAL 1.5 MG/DL (0.1-1.0); BUN/CREATININE RATIO 20; CALCIUM 10.8 MG/DL (8.5-10.1); CARBON DIOXIDE 35 MMOL/L (21-32); CHLORIDE 100 MMOL/L (98-107); CREATININE SERUM 0.49 MG/DL (0.60-1.30); GFR ESTIMATED > 60; GLUCOSE 114 MG/DL (70-105); POTASSIUM 4.2 MMOL/L (3.6-5.0); SODIUM 141 MMOL/L (135-145)
[2017-05-15 11:43] LABS: BILIRUBIN,URINE NEGATIVE (NEGATIVE); CLARITY,URINE SLIGHTLY CLOUDY; COLOR,URINE YELLOW; GLUCOSE, URINE (UA) NEGATIVE (NEGATIVE); KETONES,URINE 1+ (NEGATIVE); LEUKOCYTE ESTERASE ,URINE 3+ (NEGATIVE); NITRITE,URINE NEGATIVE (NEGATIVE); PH,URINE 7 (5-9); PROTEIN,URINE 1+ (NEGATIVE); UROBILINOGEN,URINE NORMAL (NORMAL)
[2017-05-15 11:43] LABS: LYMPHOCYTES % (MANUAL) 10 %; MONOCYTES % (MANUAL) 4 %; NEUTROPHILS % (MANUAL) 86 %; RBC MORPH NORMAL; REACTIVE LYMPHOCYTES 1 %
--- NOTE | 2017-05-15 11:52 | Diagnostic Imaging Report ---
INDICATION: Altered mental status and lethargy. TIME OF EXAMINATION: 11:25 AM. COMPARISON: No prior studies are available for comparison. FINDINGS: The right hemidiaphragm is mildly elevated. No infiltrates are identified. There is no evidence of congestive failure. There is minimal blunting of the left costophrenic angle which may indicate pleural thickening or minimal pleural fluid. No pneumothorax is seen. IMPRESSION: Minimal left pleural effusion or pleural thickening. The study is otherwise unremarkable. Dictated by: Dictated on workstation # [id number]
[2017-05-15 11:59] LABS: AMORPHOUS SEDIMENT,UR LARGE AMOR URATES /LPF; BACTERIA,URINE FEW /HPF; WBC,URINE >100 /HPF
[2017-05-15] MEDS ORDERED: SULF1TAB35 PO (12:02)
[2017-05-15] MEDS ORDERED: cefTRIAXone INJECTION 1,000 MG in NS (IVPB) 100 ML IV ONE (12:15)
[2017-05-15 12:59] VITALS: BP 141/81
[2017-05-17] MEDS ORDERED: MIRT15TA6 PO (13:30)
[2017-05-17] MEDS ORDERED: LORA0.5T PO (13:30)
[2017-05-17] MEDS ORDERED: MEMA7CAP PO (13:30)
[2017-05-17] MEDS ORDERED: CALC600T12 PO (14:27)
[2017-05-17] MEDS ORDERED: CARB15DR87 OT (14:27)
[2017-05-17] MEDS ORDERED: NYST60PO TP (14:27)
[2017-05-17] MEDS ORDERED: SULF1TAB35 PO (14:27)
[2017-05-17] MEDS ORDERED: [UNRECOGNIZED DRUG - CODE] PO (14:27)
== END 2017-05-15 12:59 | disposition home or self-care (01) ==
LOC: EDUNIT# 09:38 → ER 09:40
DX: N39.0 Urinary tract infection, site not specified (principal); K21.9 Gastro-esophageal reflux disease without esophagitis; Z87.19 Personal history of other diseases of the digestive system; Z91.09 Other allergy status, other than to drugs and biological substances
CPT/HCPCS: 36415; 51701; 71045; 80053; 81000; 85007; 85027; 87088; 87186; 96361; 96365